=== PATIENT | female | born 1935 | race Caucasian/White ===

== ENCOUNTER 2018-12-14 18:14 | Inpatient (IN) | payer MEDICARE ==
[~2018-12-14] VITALS: Ht 167.6 cm; Wt 57.2 kg
[~2018-12-14 18:14] MED LIST: ACET325T9 PO; ACET500T55 PO; ALBU2.5V5 NEB; ALEN70TA3 PO; ASPI-630 PO; BISA-42 PO; BISA10SU2 RC; CALC-98 PO; CARB1TAB2 PO; CHOL2000 PO; DONE10TA61 PO; LACT1CAP6 PO; LEVO25TA4 PO; LEVO25TA55 PO; MAGN400O7 PO; MEMA10TA PO; MULT-638 PO; NA P133E2 RC; NYST15CR TP; PRAM0.255 PO; SERT50TA PO; SIMV40TA3 PO; TRAM50TA PO
[2018-12-14 19:15] LABS: BILIRUBIN,URINE SMALL (NEG); CLARITY,URINE TURBID; COLOR,URINE AMBER; NITRITE,URINE POSITIVE (NEG); PH,URINE 7.5; PROTEIN,URINE 100 mg/dL (NEG-TRACE)
[2018-12-14] MEDS ORDERED: ACETAMINOPHEN 325 MG TABLET. PO ONE (19:15)
[2018-12-14] MEDS ORDERED: IV NORMAL SALINE 1000ML BAG 1,000 ML IV ONE (19:15)
[2018-12-14] MEDS ORDERED: cefTRIAXone IV Push 1 GM VIAL. IVP ONE (19:15)
[2018-12-14 19:28] LABS: BASO % 0 % (0-3); EOS # 0.1 x10^3/uL (0.0-0.7); EOS % 2 % (0-3); HEMATOCRIT 39.4 % (36.0-47.0); HEMOGLOBIN 12.7 g/dL (12.0-15.5); LYMPH # 1.9 x10^3/uL (1.0-4.8); LYMPH % 24 % (24-48); MEAN CORPUSCULAR HEMOGLOBIN 28 pg (25-35); MEAN CORPUSCULAR HGB CONC 32 g/dL (31-37); MEAN CORPUSCULAR VOLUME 88 fL (79-100); MONO # 0.7 x10^3/uL (0.0-1.1); MONO % 8 % (0-9); NEUT # 5.3 x10^3uL (1.8-7.7); NEUT % 66 % (31-73); PLATELET COUNT 215 x10^3/uL (140-400); RED BLOOD COUNT 4.49 x10^6/uL (3.50-5.40); RED CELL DISTRIBUTION WIDTH 14.8 % (11.5-14.5)
[2018-12-14] MEDS ORDERED: ACETAMINOPHEN 650 MG SUPP.RECT. PR ONE (19:30)
[2018-12-14 19:31] LABS: BACTERIA,URINE MANY /HPF (0-FEW); RBC,URINE >40 /HPF (0-2); WBC,URINE 20-40 /HPF (0-4)
[2018-12-14 19:33] LABS: CALCIUM 8.6 mg/dL (8.5-10.1); GFR 53.2; POTASSIUM 3.7 mmol/L (3.5-5.1); SALIC < 2.8 mg/dL (2.8-20.0)
[2018-12-14 19:35] LABS: PROTHROMBIN TIME PATIENT 14.9 SEC (11.7-14.0)
[2018-12-14 19:42] LABS: ALBUMIN/GLOBULIN RATIO 0.9 (1.0-1.7); TOTAL BILIRUBIN 0.5 mg/dL (0.2-1.0); TOTAL PROTEIN 6.5 g/dL (6.4-8.2)
--- NOTE | 2018-12-14 19:59 | PHYS DOC ---
Past Medical History Past Medical History: Dementia, Hypothyroid, UTI, Other Additional Past Medical Histor: arthritis, alzheimer's, PARKINSONS Past Surgical History: No Surgical History Alcohol Use: None Drug Use: None Adult General Chief Complaint Chief Complaint: ALTERED MENTAL STATUS HPI HPI Patient is a 83 year old female who presents with AMS and fever. She was transported from [facility] and upon arrival she was somnolent. [place] [facility] a 1400 today and it showed hypernatremia and UA showed >50 wbc and rbc / hpf, as well as multiple bacteria and positive nitrates. She was able to follow commands and opened her eyes to speech. She denied pain, shortness of breath, and n/v. She has a history of parkinsons, dementia, hypothyroidism, and afib. Review of Systems Review of Systems Limited by dementia Current Medications Current Medications Current Medications Medications (Trade) Dose Ordered Sig/Belinda Start Time Stop Time Status Last Admin Dose Admin Acetaminophen (Tylenol Supp) 650 mg 1X ONCE 12/14/18 19:30 12/14/18 19:31 DC 12/14/18 19:22 650 MG Acetaminophen (Tylenol) 650 mg 1X ONCE 12/14/18 19:15 12/14/18 19:16 DC Ceftriaxone Sodium (Rocephin) 1 gm 1X ONCE 12/14/18 19:15 12/14/18 19:16 DC 12/14/18 19:22 1 GM Sodium Chloride 1,000 ml @ 1,000 mls/hr 1X ONCE 12/14/18 19:15 12/14/18 20:14 DC 12/14/18 19:22 1,000 MLS/HR Allergies Allergies Allergies Coded Allergies Type Severity Reaction Last Updated Verified No Known Drug Allergies 08/01/17 No Physical Exam Physical Exam Constitutional: Well developed, chronically ill-appearing eyes are closed open to voice HENT: Normocephalic, atraumatic, bilateral external ears normal, oropharynx very dry, no oral exudates, nose normal. [] Eyes: PERRLA, EOMI, conjunctiva normal, no discharge. [] Neck: Normal range of motion, no tenderness, supple, no stridor. [] Cardiovascular:Heart rate regular rhythm, no murmur [] Lungs & Thorax: Bilateral breath sounds clear to auscultation [] Abdomen: Bowel sounds normal, soft, no tenderness, no masses, no pulsatile masses. [] Extremities: No tenderness, no cyanosis, no clubbing, ROM intact, no edema. [] Neurologic: Alert and oriented 1 patient is able follow some commands Current Patient Data Vital Signs Vital Signs Date Time Temp Pulse Resp B/P (MAP) Pulse Ox O2 Delivery O2 Flow Rate FiO2 12/14/18 22:30 60 18 95 12/14/18 18:17 101.0 101/50 (67) Room Air 101.0 Lab Values Laboratory Tests Test 12/14/18 18:33 12/14/18 19:15 12/14/18 22:15 Urine Collection Type Unknown Urine Color [place] Urine Clarity Turbid Urine pH 7.5 Urine Specific Avis 1.025 Urine Protein 100 mg/dL (NEG-TRACE) Urine Glucose (UA) Negative mg/dL (NEG) Urine Ketones (Stick) Trace mg/dL (NEG) Urine Blood Large (NEG) Urine Nitrite Positive (NEG) Urine Bilirubin Small (NEG) Urine Urobilinogen Dipstick 1.0 mg/dL (0.2 mg/dL) Urine Leukocyte Esterase Large (NEG) Urine RBC >40 /HPF (0-2) Urine WBC 20-40 /HPF (0-4) Urine Bacteria Many /HPF (0-FEW) White Blood Count 8.0 x10^3/uL (4.0-11.0) Red Blood Count 4.49 x10^6/uL (3.50-5.40) Hemoglobin 12.7 g/dL (12.0-15.5) Hematocrit 39.4 % (36.0-47.0) Mean Corpuscular Volume 88 fL (79-100) Mean Corpuscular Hemoglobin 28 pg (25-35) Mean Corpuscular Hemoglobin Concent 32 g/dL (31-37) Red Cell Distribution Width 14.8 % (11.5-14.5) H Platelet Count 215 x10^3/uL (140-400) Neutrophils (%) (Auto) 66 % (31-73) Lymphocytes (%) (Auto) 24 % (24-48) Monocytes (%) (Auto) 8 % (0-9) Eosinophils (%) (Auto) 2 % (0-3) Basophils (%) (Auto) 0 % (0-3) Neutrophils # (Auto) 5.3 x10^3uL (1.8-7.7) Lymphocytes # (Auto) 1.9 x10^3/uL (1.0-4.8) Monocytes # (Auto) 0.7 x10^3/uL (0.0-1.1) Eosinophils # (Auto) 0.1 x10^3/uL (0.0-0.7) Basophils # (Auto) 0.0 x10^3/uL (0.0-0.2) Prothrombin Time 14.9 SEC (11.7-14.0) H Prothrombin Time INR 1.2 (0.8-1.1) H Sodium Level 151 mmol/L (136-145) H Potassium Level 3.7 mmol/L (3.5-5.1) Chloride Level 114 mmol/L (98-107) H Carbon Dioxide Level 27 mmol/L (21-32) Anion Gap 10 (6-14) Blood Urea Nitrogen 33 mg/dL (7-20) H Creatinine 1.0 mg/dL (0.6-1.0) Estimated GFR (Cockcroft-Gault) 53.2 BUN/Creatinine Ratio 33 (6-20) H Glucose Level 98 mg/dL (70-99) Lactic Acid Level 1.3 mmol/L (0.4-2.0) Calcium Level 8.6 mg/dL (8.5-10.1) Total Bilirubin 0.5 mg/dL (0.2-1.0) Aspartate Amino Transferase (AST) 34 U/L (15-37) Alanine Aminotransferase (ALT) 23 U/L (14-59) Alkaline Phosphatase 92 U/L (46-116) Troponin I Quantitative < 0.017 ng/mL (0.000-0.055) Total Protein 6.5 g/dL (6.4-8.2) Albumin 3.0 g/dL (3.4-5.0) L Albumin/Globulin Ratio 0.9 (1.0-1.7) L Salicylates Level < 2.8 mg/dL (2.8-20.0) L Salicylate Last Dose Date Unk Salicylate Last Dose Time Unk Influenza Type A Antigen Negative (NEGATIVE) Influenza Type B Antigen Negative (NEGATIVE) Laboratory Tests 12/14/18 19:15 Laboratory Tests 12/14/18 19:15 EKG EKG []Normal sinus rhythm rate of 78 no acute ischemic changes noted interpreted by me the timing encounter. Radiology/Procedures Radiology/Procedures CXR (12/14/2018, 1900) shows[] no def pna. Course & Med Decision Making Course & Med Decision Making Patient is a 83 year old female who presents with AMS and fever. She was transported from [facility] and upon arrival she was somnolent but AAOx3. [place] [facility] a 1400 today and it showed hypernatremia and UA showed >50 wbc and rbc / hpf, as well as multiple bacteria and positive nitrates. She was able to follow commands and opened her eyes to speech. She denied pain, shortness of breath, and n/v. She has a history of parkinsons, dementia, hypothyroidism, and afib. With the results from [place] coupled w/ patients age, fever, and AMS, she most likely has the followin. UTI 2. Sepsis 3. Hypernatremia 4. Dehydration IV access was established and fluid bolus administered given to patient for dehydration. A UA, CBC, CMP, UDS, ECG, LFTs, CXR, 2 blood cultures, urine culture, and Lactic acid levels were ordered to help r/o or rule in the above. Pt was given Ceftriaxone for her fever and ams and urinalysis findings, this could possibly change when blood cultures and urine cultures come back. Noted UTI lactic acid is within normal limits blood pressure looks good patient be admitted to the service of Dr. menjivar antibiotics hydration and observation patient's family are comfortable with this plan and they say overall that she is actually not that far off her baseline just more somnolent than normal Dragon Disclaimer Dragon Disclaimer This electronic medical record was generated, in whole or in part, using a voice recognition dictation system. Departure Departure Impression: Primary Impression: UTI (urinary tract infection) Additional Impression: Hypernatremia Disposition: ADMITTED INPATIENT Admitting Physician: Other Condition: STABLE Referrals: ALEXA MCELROY MD (PCP) Problem Qualifiers TRINH LEWIS MD Dec 14, 2018 19:59
--- NOTE | 2018-12-14 22:26 | RAD ---
AP chest. HISTORY: Altered mental status, fever AP view was taken of the chest. The aorta is tortuous. Heart is normal in size. There are no acute infiltrates. There is no effusion. IMPRESSION: 1. No acute infiltrates. Electronically signed by: Anmol Persaud MD (12/14/2018 10:23 PM) [id number]
[2018-12-14 22:41] LABS: INFLUENZA A PATIENT NEGATIVE (NEGATIVE); INFLUENZA B PATIENT NEGATIVE (NEGATIVE)
[2018-12-15] VITALS (7 sets, daily range): BP systolic 110–159; BP diastolic 45–77
--- NOTE | 2018-12-15 00:29 | NUR ---
Pt. just arrived from ED via bed with UTI and AMS. She is asleep and has not made any needs known. Tiny sacral wound that is starting and ST on RUE both covered w/ foam dsg.
--- NOTE | 2018-12-15 00:36 | PDOC1 ---
History and Physical Date of Admission Date of Admission 12/14/2018 Source Source: Chart review, Unable to obtain due to (dementia) History of Present Illness History of Present Illness Patient is an 83-year-old female with past medical history of dementia and Parkinson's disease who [facility] due to reports of "altered mental status" the history is taken from report from emergency department physician was able to get history from family members were unfortunately not at bedside anymore. The patient at the time of my evaluation is in no apparent distress. Patient retracts to noxious stimuli in seems to be moving all extremities. Patient recently responds to verbal stimuli when I call her name. She will not open her eyes and will not engage in conversation. The patient baseline seems to be put we are witnessing at the present time. The patient did not percent fever chills or diaphoresis no reason cold-like symptoms and no recent [id number] medications or changes to her home medication regimen either. Patient was evaluated in the emergency department and diagnosed with a UTI which could be contributing to her altered mental status. I have explained the plan of care to patient unfortunately had taking she is able to understand he is in no apparent distress at the time of my note breathing normally with coarse breath sounds especially in the bilateral lower lungs no peripheral edema reported ER course: Patient is a 83 year old female who presents with AMS and fever. She was transported from [facility] and upon arrival she was somnolent but AAOx3. [place] [facility] a 1400 today and it showed hypernatremia and UA showed >50 wbc and rbc / hpf, as well as multiple bacteria and positive nitrates. She was able to follow commands and opened her eyes to speech. She denied pain, shortness of breath, and n/v. She has a history of parkinsons, dementia, hypothyroidism, and afib. Past Medical History Cardiovascular: Hyperlipidemia Pulmonary: No pertinent hx CENTRAL NERVOUS SYSTEM: Dementia, Other GI: No pertinent hx Heme/Onc: No pertinent hx Hepatobiliary: No pertinent hx Psych: No pertinent hx Rheumatologic: No pertinent hx Infectious disease: No pertinent hx Renal/: No pertinent hx Endocrine: No pertinent hx, Hypothyroidism Past Surgical History Past Surgical History: No pertinent history Family History Family History: Other Social History ALCOHOL: none Drugs: None Current Medications Current Medications Current Medications Medications (Trade) Dose Ordered Sig/Belinda Start Time Stop Time Status Last Admin Dose Admin Acetaminophen (Tylenol Supp) 650 mg 1X ONCE 12/14/18 19:30 12/14/18 19:31 DC 12/14/18 19:22 650 MG Acetaminophen (Tylenol) 650 mg 1X ONCE 12/14/18 19:15 12/14/18 19:16 DC Ceftriaxone Sodium (Rocephin) 1 gm 1X ONCE 12/14/18 19:15 12/14/18 19:16 DC 12/14/18 19:22 1 GM Sodium Chloride 1,000 ml @ 75 mls/hr [id number] 12/14/18 23:00 12/15/18 22:59 Allergies Allergies Allergies Coded Allergies Type Severity Reaction Last Updated Verified No Known Drug Allergies 08/01/17 No ROS Review of System CONSTITUTIONAL: No fever or chills EYES: No recent changes SKIN: No rash or itching CARDIOVASCULAR: No chest pain, syncope, palpitations, or edema RESPIRATORY: No SOB or cough GASTROINTESTINAL: No nausea, vomiting or abdominal pain NEUROLOGICAL: No headaches or weakness ENDOCRINE: No cold or heat intolerance GENITOURINARY: No urgency or frequency of urination MUSCULOSKELETAL: No back pain or joint pain LYMPHATICS: No enlarged lymph nodes PSYCHIATRIC: No anxiety or depression Physical Exam Physical Exam GEN.: distress. Alert and oriented. HEENT: Head is normocephalic, atraumatic NECK: Supple. LUNGS: Clear to auscultation. HEART: RRR, S1, S2 present. Peripheral pulses intact ABDOMEN: Soft, nontender. Positive bowel sounds. EXTREMITIES: Without any cyanosis. NEUROLOGIC: somewhat slurred speech, cranial nerves grossly intact, unable to assess fund of knowledge, repetion, etc, etc PSYCHIATRIC: Normal affect, normal mood. SKIN: No ulcerations Vitals Vitals Vital Signs Date Time Temp Pulse Resp B/P (MAP) Pulse Ox O2 Delivery O2 Flow Rate FiO2 12/14/18 23:30 60 19 94 12/14/18 18:17 101.0 101/50 (67) Room Air 101.0 Labs Labs Laboratory Tests Test 12/14/18 18:33 12/14/18 19:15 12/14/18 22:15 Urine Collection Type Unknown Urine Color [place] Urine Clarity Turbid Urine pH 7.5 Urine Specific [place] 1.025 Urine Protein 100 mg/dL (NEG-TRACE) Urine Glucose (UA) Negative mg/dL (NEG) Urine Ketones (Stick) Trace mg/dL (NEG) Urine Blood Large (NEG) Urine Nitrite Positive (NEG) Urine Bilirubin Small (NEG) Urine Urobilinogen Dipstick 1.0 mg/dL (0.2 mg/dL) Urine Leukocyte Esterase Large (NEG) Urine RBC >40 /HPF (0-2) Urine WBC 20-40 /HPF (0-4) Urine Bacteria Many /HPF (0-FEW) White Blood Count 8.0 x10^3/uL (4.0-11.0) Red Blood Count 4.49 x10^6/uL (3.50-5.40) Hemoglobin 12.7 g/dL (12.0-15.5) Hematocrit 39.4 % (36.0-47.0) Mean Corpuscular Volume 88 fL (79-100) Mean Corpuscular Hemoglobin 28 pg (25-35) Mean Corpuscular Hemoglobin Concent 32 g/dL (31-37) Red Cell Distribution Width 14.8 % (11.5-14.5) Platelet Count 215 x10^3/uL (140-400) Neutrophils (%) (Auto) 66 % (31-73) Lymphocytes (%) (Auto) 24 % (24-48) Monocytes (%) (Auto) 8 % (0-9) Eosinophils (%) (Auto) 2 % (0-3) Basophils (%) (Auto) 0 % (0-3) Neutrophils # (Auto) 5.3 x10^3uL (1.8-7.7) Lymphocytes # (Auto) 1.9 x10^3/uL (1.0-4.8) Monocytes # (Auto) 0.7 x10^3/uL (0.0-1.1) Eosinophils # (Auto) 0.1 x10^3/uL (0.0-0.7) Basophils # (Auto) 0.0 x10^3/uL (0.0-0.2) Prothrombin Time 14.9 SEC (11.7-14.0) Prothromb Time International Ratio 1.2 (0.8-1.1) Sodium Level 151 mmol/L (136-145) Potassium Level 3.7 mmol/L (3.5-5.1) Chloride Level 114 mmol/L (98-107) Carbon Dioxide Level 27 mmol/L (21-32) Anion Gap 10 (6-14) Blood Urea Nitrogen 33 mg/dL (7-20) Creatinine 1.0 mg/dL (0.6-1.0) Estimated GFR (Cockcroft-Gault) 53.2 BUN/Creatinine Ratio 33 (6-20) Glucose Level 98 mg/dL (70-99) Lactic Acid Level 1.3 mmol/L (0.4-2.0) Calcium Level 8.6 mg/dL (8.5-10.1) Total Bilirubin 0.5 mg/dL (0.2-1.0) Aspartate Amino Transf (AST/SGOT) 34 U/L (15-37) Alanine Aminotransferase (ALT/SGPT) 23 U/L (14-59) Alkaline Phosphatase 92 U/L (46-116) Troponin I Quantitative < 0.017 ng/mL (0.000-0.055) Total Protein 6.5 g/dL (6.4-8.2) Albumin 3.0 g/dL (3.4-5.0) Albumin/Globulin Ratio 0.9 (1.0-1.7) Salicylates Level < 2.8 mg/dL (2.8-20.0) Salicylate Last Dose Date Unk Salicylate Last Dose Time Unk Influenza Type A Antigen Negative (NEGATIVE) Influenza Type B Antigen Negative (NEGATIVE) Laboratory Tests Test 12/14/18 18:33 12/14/18 19:15 12/14/18 22:15 Urine Collection Type Unknown Urine Color [place] Urine Clarity Turbid Urine pH 7.5 Urine Specific [place] 1.025 Urine Protein 100 mg/dL (NEG-TRACE) Urine Glucose (UA) Negative mg/dL (NEG) Urine Ketones (Stick) Trace mg/dL (NEG) Urine Blood Large (NEG) Urine Nitrite Positive (NEG) Urine Bilirubin Small (NEG) Urine Urobilinogen Dipstick 1.0 mg/dL (0.2 mg/dL) Urine Leukocyte Esterase Large (NEG) Urine RBC >40 /HPF (0-2) Urine WBC 20-40 /HPF (0-4) Urine Bacteria Many /HPF (0-FEW) White Blood Count 8.0 x10^3/uL (4.0-11.0) Red Blood Count 4.49 x10^6/uL (3.50-5.40) Hemoglobin 12.7 g/dL (12.0-15.5) Hematocrit 39.4 % (36.0-47.0) Mean Corpuscular Volume 88 fL (79-100) Mean Corpuscular Hemoglobin 28 pg (25-35) Mean Corpuscular Hemoglobin Concent 32 g/dL (31-37) Red Cell Distribution Width 14.8 % (11.5-14.5) Platelet Count 215 x10^3/uL (140-400) Neutrophils (%) (Auto) 66 % (31-73) Lymphocytes (%) (Auto) 24 % (24-48) Monocytes (%) (Auto) 8 % (0-9) Eosinophils (%) (Auto) 2 % (0-3) Basophils (%) (Auto) 0 % (0-3) Neutrophils # (Auto) 5.3 x10^3uL (1.8-7.7) Lymphocytes # (Auto) 1.9 x10^3/uL (1.0-4.8) Monocytes # (Auto) 0.7 x10^3/uL (0.0-1.1) Eosinophils # (Auto) 0.1 x10^3/uL (0.0-0.7) Basophils # (Auto) 0.0 x10^3/uL (0.0-0.2) Prothrombin Time 14.9 SEC (11.7-14.0) Prothromb Time International Ratio 1.2 (0.8-1.1) Sodium Level 151 mmol/L (136-145) Potassium Level 3.7 mmol/L (3.5-5.1) Chloride Level 114 mmol/L (98-107) Carbon Dioxide Level 27 mmol/L (21-32) Anion Gap 10 (6-14) Blood Urea Nitrogen 33 mg/dL (7-20) Creatinine 1.0 mg/dL (0.6-1.0) Estimated GFR (Cockcroft-Gault) 53.2 BUN/Creatinine Ratio 33 (6-20) Glucose Level 98 mg/dL (70-99) Lactic Acid Level 1.3 mmol/L (0.4-2.0) Calcium Level 8.6 mg/dL (8.5-10.1) Total Bilirubin 0.5 mg/dL (0.2-1.0) Aspartate Amino Transf (AST/SGOT) 34 U/L (15-37) Alanine Aminotransferase (ALT/SGPT) 23 U/L (14-59) Alkaline Phosphatase 92 U/L (46-116) Troponin I Quantitative < 0.017 ng/mL (0.000-0.055) Total Protein 6.5 g/dL (6.4-8.2) Albumin 3.0 g/dL (3.4-5.0) Albumin/Globulin Ratio 0.9 (1.0-1.7) Salicylates Level < 2.8 mg/dL (2.8-20.0) Salicylate Last Dose Date Unk Salicylate Last Dose Time Unk Influenza Type A Antigen Negative (NEGATIVE) Influenza Type B Antigen Negative (NEGATIVE) VTE Prophylaxis Ordered VTE Prophylaxis Devices: Yes VTE Pharmacological Prophylaxi: No RUBEN LANCE MD Dec 15, 2018 00:36
[2018-12-15] MEDS: IV NORMAL SALINE 1000ML BAG 1,000 ML IV SCH ×2 (00:42→12:34)
--- NOTE | 2018-12-15 08:31 | EKG ---
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
[2018-12-15] MEDS ORDERED: ACETAMINOPHEN 500 MG TABLET PO PRN (10:30)
[2018-12-15] MEDS ORDERED: BISACODYL 10 MG SUPP.RECT. PR PRN (10:30)
[2018-12-15] MEDS ORDERED: SODIUM PHOSPHATES 19/7GM 133 ML ENEMA. RC PRN (10:30)
[2018-12-15] MEDS ORDERED: ACETAMINOPHEN 325 MG TABLET. PO PRN (10:30)
[2018-12-15] MEDS ORDERED: traMADol 50 MG TABLET PO PRN (10:30)
[2018-12-15] MEDS: ALBUTEROL SULFATE 2.5 MG/3 ML NEBU. NEB SCH ×2 (12:00→20:44)
[2018-12-15] MEDS: MULTIVITAMIN with MINERAL TABLET. PO SCH (12:31)
[2018-12-15] MEDS: MAGNESIUM HYDROXIDE 2,400 MG/30 ML ORAL.SUSP. PO SCH (12:31)
[2018-12-15] MEDS: LEVOTHYROXINE 25 MCG TABLET. PO SCH (12:32)
[2018-12-15] MEDS: CARBIDOPA/LEVODOPA 25/100MG TABLET PO SCH ×3 (12:32→21:02)
[2018-12-15] MEDS: BISACODYL 5 MG TABLET.DR. PO SCH (12:32)
[2018-12-15] MEDS: ASPIRIN CHEWABLE 81 MG TABLET. PO SCH (12:32)
[2018-12-15] MEDS: SERTRALINE 50 MG TABLET. PO SCH (12:32)
[2018-12-15] MEDS: MEMANTINE 10 MG TABLET. PO SCH ×2 (12:33→21:02)
[2018-12-15] MEDS: CHOLECALCIFEROL (VITAMIN D3) 1,000 UNIT TABLET PO SCH (12:33)
[2018-12-15] MEDS: NYSTATIN 100,000 UNIT/GM TOPICAL CREAM 15GM TUBE. TP SCH ×2 (12:34→21:03)
--- NOTE | 2018-12-15 13:08 | PDOC ---
PROGRESS NOTES Chief Complaint Chief Complaint Acute encephalopathy secondary to urinary tract infection Moderate to severe dehydration Hypernatremia secondary to the above Generalized weakness History of Parkinson's disease History of Alzheimer's type dementia History of hypothyroidism Plan: Repeat labs in the a.m. Resume home medications Continue with antibiotics awaiting for results of cultures Prophylaxis with SCD and teds History of Present Illness History of Present Illness Patient laying in bed in no acute distress. Seems to be a little bit more awake compared to admission yesterday evening. I'm able to have a meaningful conversation with the patient but she seems to be back at her usual baseline. According to ER physician report patient will intermittently interact with her family members but he is not carrying out for long conversations at this point. Hemodynamically stable continue waiting for results of cultures Vitals Vitals Vital Signs Date Time Temp Pulse Resp B/P (MAP) Pulse Ox O2 Delivery O2 Flow Rate FiO2 12/15/18 10:47 97.6 85 12 115/70 (85) 93 Room Air 97.6 Physical Exam General: Alert, No acute distress Heart: Regular rate, Normal S1, Normal S2 Lungs: Clear Abdomen: Normal bowel sounds, Soft, No tenderness Extremities: No clubbing, No cyanosis Skin: No rashes, No breakdown Labs LABS Laboratory Tests Test 12/14/18 18:33 12/14/18 19:15 12/14/18 22:15 Urine Collection Type Unknown Urine Color [place] Urine Clarity Turbid Urine pH 7.5 Urine Specific [place] 1.025 Urine Protein 100 mg/dL (NEG-TRACE) Urine Glucose (UA) Negative mg/dL (NEG) Urine Ketones (Stick) Trace mg/dL (NEG) Urine Blood Large (NEG) Urine Nitrite Positive (NEG) Urine Bilirubin Small (NEG) Urine Urobilinogen Dipstick 1.0 mg/dL (0.2 mg/dL) Urine Leukocyte Esterase Large (NEG) Urine RBC >40 /HPF (0-2) Urine WBC 20-40 /HPF (0-4) Urine Bacteria Many /HPF (0-FEW) White Blood Count 8.0 x10^3/uL (4.0-11.0) Red Blood Count 4.49 x10^6/uL (3.50-5.40) Hemoglobin 12.7 g/dL (12.0-15.5) Hematocrit 39.4 % (36.0-47.0) Mean Corpuscular Volume 88 fL (79-100) Mean Corpuscular Hemoglobin 28 pg (25-35) Mean Corpuscular Hemoglobin Concent 32 g/dL (31-37) Red Cell Distribution Width 14.8 % (11.5-14.5) Platelet Count 215 x10^3/uL (140-400) Neutrophils (%) (Auto) 66 % (31-73) Lymphocytes (%) (Auto) 24 % (24-48) Monocytes (%) (Auto) 8 % (0-9) Eosinophils (%) (Auto) 2 % (0-3) Basophils (%) (Auto) 0 % (0-3) Neutrophils # (Auto) 5.3 x10^3uL (1.8-7.7) Lymphocytes # (Auto) 1.9 x10^3/uL (1.0-4.8) Monocytes # (Auto) 0.7 x10^3/uL (0.0-1.1) Eosinophils # (Auto) 0.1 x10^3/uL (0.0-0.7) Basophils # (Auto) 0.0 x10^3/uL (0.0-0.2) Prothrombin Time 14.9 SEC (11.7-14.0) Prothromb Time International Ratio 1.2 (0.8-1.1) Sodium Level 151 mmol/L (136-145) Potassium Level 3.7 mmol/L (3.5-5.1) Chloride Level 114 mmol/L (98-107) Carbon Dioxide Level 27 mmol/L (21-32) Anion Gap 10 (6-14) Blood Urea Nitrogen 33 mg/dL (7-20) Creatinine 1.0 mg/dL (0.6-1.0) Estimated GFR (Cockcroft-Gault) 53.2 BUN/Creatinine Ratio 33 (6-20) Glucose Level 98 mg/dL (70-99) Lactic Acid Level 1.3 mmol/L (0.4-2.0) Calcium Level 8.6 mg/dL (8.5-10.1) Total Bilirubin 0.5 mg/dL (0.2-1.0) Aspartate Amino Transf (AST/SGOT) 34 U/L (15-37) Alanine Aminotransferase (ALT/SGPT) 23 U/L (14-59) Alkaline Phosphatase 92 U/L (46-116) Troponin I Quantitative < 0.017 ng/mL (0.000-0.055) Total Protein 6.5 g/dL (6.4-8.2) Albumin 3.0 g/dL (3.4-5.0) Albumin/Globulin Ratio 0.9 (1.0-1.7) Salicylates Level < 2.8 mg/dL (2.8-20.0) Salicylate Last Dose Date Unk Salicylate Last Dose Time Unk Influenza Type A Antigen Negative (NEGATIVE) Influenza Type B Antigen Negative (NEGATIVE) Assessment and Plan Assessmemt and Plan Problems Medical Problems: (1) Hypernatremia Status: Acute Problems: (1) Hypernatremia (2) UTI (urinary tract infection) (3) Altered mental status (4) Generalized weakness Comment Review of Relevant I have reviewed the following items josephine (where applicable) has been applied. Labs Laboratory Tests Test 12/14/18 18:33 12/14/18 19:15 12/14/18 22:15 Urine Collection Type Unknown Urine Color [place] Urine Clarity Turbid Urine pH 7.5 Urine Specific [place] 1.025 Urine Protein 100 mg/dL (NEG-TRACE) Urine Glucose (UA) Negative mg/dL (NEG) Urine Ketones (Stick) Trace mg/dL (NEG) Urine Blood Large (NEG) Urine Nitrite Positive (NEG) Urine Bilirubin Small (NEG) Urine Urobilinogen Dipstick 1.0 mg/dL (0.2 mg/dL) Urine Leukocyte Esterase Large (NEG) Urine RBC >40 /HPF (0-2) Urine WBC 20-40 /HPF (0-4) Urine Bacteria Many /HPF (0-FEW) White Blood Count 8.0 x10^3/uL (4.0-11.0) Red Blood Count 4.49 x10^6/uL (3.50-5.40) Hemoglobin 12.7 g/dL (12.0-15.5) Hematocrit 39.4 % (36.0-47.0) Mean Corpuscular Volume 88 fL (79-100) Mean Corpuscular Hemoglobin 28 pg (25-35) Mean Corpuscular Hemoglobin Concent 32 g/dL (31-37) Red Cell Distribution Width 14.8 % (11.5-14.5) Platelet Count 215 x10^3/uL (140-400) Neutrophils (%) (Auto) 66 % (31-73) Lymphocytes (%) (Auto) 24 % (24-48) Monocytes (%) (Auto) 8 % (0-9) Eosinophils (%) (Auto) 2 % (0-3) Basophils (%) (Auto) 0 % (0-3) Neutrophils # (Auto) 5.3 x10^3uL (1.8-7.7) Lymphocytes # (Auto) 1.9 x10^3/uL (1.0-4.8) Monocytes # (Auto) 0.7 x10^3/uL (0.0-1.1) Eosinophils # (Auto) 0.1 x10^3/uL (0.0-0.7) Basophils # (Auto) 0.0 x10^3/uL (0.0-0.2) Prothrombin Time 14.9 SEC (11.7-14.0) Prothromb Time International Ratio 1.2 (0.8-1.1) Sodium Level 151 mmol/L (136-145) Potassium Level 3.7 mmol/L (3.5-5.1) Chloride Level 114 mmol/L (98-107) Carbon Dioxide Level 27 mmol/L (21-32) Anion Gap 10 (6-14) Blood Urea Nitrogen 33 mg/dL (7-20) Creatinine 1.0 mg/dL (0.6-1.0) Estimated GFR (Cockcroft-Gault) 53.2 BUN/Creatinine Ratio 33 (6-20) Glucose Level 98 mg/dL (70-99) Lactic Acid Level 1.3 mmol/L (0.4-2.0) Calcium Level 8.6 mg/dL (8.5-10.1) Total Bilirubin 0.5 mg/dL (0.2-1.0) Aspartate Amino Transf (AST/SGOT) 34 U/L (15-37) Alanine Aminotransferase (ALT/SGPT) 23 U/L (14-59) Alkaline Phosphatase 92 U/L (46-116) Troponin I Quantitative < 0.017 ng/mL (0.000-0.055) Total Protein 6.5 g/dL (6.4-8.2) Albumin 3.0 g/dL (3.4-5.0) Albumin/Globulin Ratio 0.9 (1.0-1.7) Salicylates Level < 2.8 mg/dL (2.8-20.0) Salicylate Last Dose Date Unk Salicylate Last Dose Time Unk Influenza Type A Antigen Negative (NEGATIVE) Influenza Type B Antigen Negative (NEGATIVE) Laboratory Tests Test 12/14/18 18:33 12/14/18 19:15 12/14/18 22:15 Urine Collection Type Unknown Urine Color [place] Urine Clarity Turbid Urine pH 7.5 Urine Specific [place] 1.025 Urine Protein 100 mg/dL (NEG-TRACE) Urine Glucose (UA) Negative mg/dL (NEG) Urine Ketones (Stick) Trace mg/dL (NEG) Urine Blood Large (NEG) Urine Nitrite Positive (NEG) Urine Bilirubin Small (NEG) Urine Urobilinogen Dipstick 1.0 mg/dL (0.2 mg/dL) Urine Leukocyte Esterase Large (NEG) Urine RBC >40 /HPF (0-2) Urine WBC 20-40 /HPF (0-4) Urine Bacteria Many /HPF (0-FEW) White Blood Count 8.0 x10^3/uL (4.0-11.0) Red Blood Count 4.49 x10^6/uL (3.50-5.40) Hemoglobin 12.7 g/dL (12.0-15.5) Hematocrit 39.4 % (36.0-47.0) Mean Corpuscular Volume 88 fL (79-100) Mean Corpuscular Hemoglobin 28 pg (25-35) Mean Corpuscular Hemoglobin Concent 32 g/dL (31-37) Red Cell Distribution Width 14.8 % (11.5-14.5) Platelet Count 215 x10^3/uL (140-400) Neutrophils (%) (Auto) 66 % (31-73) Lymphocytes (%) (Auto) 24 % (24-48) Monocytes (%) (Auto) 8 % (0-9) Eosinophils (%) (Auto) 2 % (0-3) Basophils (%) (Auto) 0 % (0-3) Neutrophils # (Auto) 5.3 x10^3uL (1.8-7.7) Lymphocytes # (Auto) 1.9 x10^3/uL (1.0-4.8) Monocytes # (Auto) 0.7 x10^3/uL (0.0-1.1) Eosinophils # (Auto) 0.1 x10^3/uL (0.0-0.7) Basophils # (Auto) 0.0 x10^3/uL (0.0-0.2) Prothrombin Time 14.9 SEC (11.7-14.0) Prothromb Time International Ratio 1.2 (0.8-1.1) Sodium Level 151 mmol/L (136-145) Potassium Level 3.7 mmol/L (3.5-5.1) Chloride Level 114 mmol/L (98-107) Carbon Dioxide Level 27 mmol/L (21-32) Anion Gap 10 (6-14) Blood Urea Nitrogen 33 mg/dL (7-20) Creatinine 1.0 mg/dL (0.6-1.0) Estimated GFR (Cockcroft-Gault) 53.2 BUN/Creatinine Ratio 33 (6-20) Glucose Level 98 mg/dL (70-99) Lactic Acid Level 1.3 mmol/L (0.4-2.0) Calcium Level 8.6 mg/dL (8.5-10.1) Total Bilirubin 0.5 mg/dL (0.2-1.0) Aspartate Amino Transf (AST/SGOT) 34 U/L (15-37) Alanine Aminotransferase (ALT/SGPT) 23 U/L (14-59) Alkaline Phosphatase 92 U/L (46-116) Troponin I Quantitative < 0.017 ng/mL (0.000-0.055) Total Protein 6.5 g/dL (6.4-8.2) Albumin 3.0 g/dL (3.4-5.0) Albumin/Globulin Ratio 0.9 (1.0-1.7) Salicylates Level < 2.8 mg/dL (2.8-20.0) Salicylate Last Dose Date Unk Salicylate Last Dose Time Unk Influenza Type A Antigen Negative (NEGATIVE) Influenza Type B Antigen Negative (NEGATIVE) Medications Current Medications Sodium Chloride 1,000 ml @ 1,000 mls/hr 1X ONCE IV Last administered on at 19:22; Start 12/14/18 at 19:15; Stop 12/14/18 at 20:14; Status DC Ceftriaxone Sodium (Rocephin) 1 gm 1X ONCE IVP Last administered on 12/14/18 19:22; Start 12/14/18 at 19:15; Stop 12/14/18 at 19:16; Status DC Acetaminophen (Tylenol) 650 mg 1X ONCE PO ; Start 12/14/18 at 19:15; Stop at 19:16; Status DC Acetaminophen (Tylenol Supp) 650 mg 1X ONCE [place] Last administered on 12/14/18 19:22; Start 12/14/18 at 19:30; Stop 12/14/18 at 19:31; Status DC Sodium Chloride 1,000 ml @ 75 mls/hr [id number] IV Last administered on 12/15/18 12:34; Start 12/14/18 at 23:00; Stop 12/15/18 at 22:59 Acetaminophen (Tylenol) 650 mg PRN Q6HRS PRN PO fever; Start 12/15/18 at 10:30 Albuterol Sulfate (Ventolin Neb Soln) 2.5 mg Q6HRS NEB Last administered on 12/15at 12:00; Start 12/15/18 at 12:00 Aspirin (Children'S Aspirin) 81 mg DAILY PO Last administered on 12/15/18 12:32 ; Start 12/15/18 at 11:00 Bisacodyl (Dulcolax Tab) 10 mg DAILY PO Last administered on 12/15/18 12:32; Start 12/15/18 at 11:00 Carbidopa/Levodopa (Sinemet 25/100) 1 tab TID PO Last administered on 12/15/18 12:32; Start 12/15/18 at 11:00 Magnesium Hydroxide (Milk Of Magnesia) 400 mg DAILY PO Last administered on 12/15 12:31; Start 12/15/18 at 11:00 Multivitamins (Thera M Plus) 1 tab DAILY PO Last administered on 12/15/18 12:31 ; Start 12/15/18 at 11:00 Sodium Monofluorophosphate (Fleet Adult) 133 ml PRN DAILY PRN RC CONSTIPATION; Start 12/15/18 at 10:30 Sertraline HCl (Zoloft) 50 mg DAILY PO Last administered on 12/15/18 12:32; Start 12/15/18 at 11:00 Tramadol HCl (Ultram) 25 mg PRN Q4HRS PRN PO MODERATE PAIN; Start 12/15/18 at 10 :30 Acetaminophen (Tylenol) 1,000 mg PRN Q6HRS PRN PO MILD PAIN; Start 12/15/18 at 10:30 Non-Formulary Medication (Alendronate Sodium (Fosamax)) 1 tab WEEKLY PO ; Start 12/22/18 at 09:00; Status UNV Bisacodyl (Dulcolax Supp) 10 mg PRN DAILY PRN [place] CONSTIPATION; Start 12/15/18 at 10:30 Calcium/Vitamin D (Oscal D 500mg/ 200uts) 1 tab BIDWMEALS PO ; Start 12/15/18 at 17:00 Vitamin D (Vitamin D3) 2,000 unit DAILY PO Last administered on 12/15/18at 12:33 ; Start 12/15/18 at 11:00 Donepezil HCl (Aricept) 10 mg QHS PO ; Start 12/15/18 at 21:00 Lactobacillus Rhamnosus (Culturelle) 1 cap BID PO ; Start 12/15/18 at 21:00 Levothyroxine Sodium (Synthroid) 25 mcg DAILY06 PO Last administered on at 12:32; Start 12/15/18 at 11:00 Non-Formulary Medication (Levothyroxine Sodium (Synthroid)) 1 tab DAILY PO ; Start 12/16/18 at 09:00; Status UNV Memantine (Namenda) 10 mg BID PO Last administered on 12/15/18at 12:33; Start 12/15/18 at 11:00 Nystatin (Mycostatin) 1 jefe TID TP ; Start 12/15/18 at 14:00; Status Cancel Simvastatin (Zocor) 40 mg QHS PO ; Start 12/15/18 at 21:00 Nystatin (Mycostatin) 1 jefe TID TP Last administered on 12/15/18at 12:34; Start 12/15/18 at 14:00 Active Scripts Active Mapap (Acetaminophen) 500 Mg Tablet 1,000 Mg PO PRN Q6HRS PRN 30 Days Calcium + Vitamin D Tablet (Calcium Carbonate/Vitamin D3) 1 Each Tablet 1 Each PO BID Aspirin 81 Mg Tab.chew 1 Tab PO DAILY Reported Nystatin 15 Gm Cream..g. 1 Jefe TP TID Synthroid (Levothyroxine Sodium) 25 Mcg Tablet 1 Tab PO DAILY Zoloft (Sertraline Hcl) 50 Mg Tablet 1 Tab PO DAILY Thera M Plus Tablet (Multivits,Ca,Minerals/Iron/FA) 1 Each Tablet 1 Each PO DAILY Probiotic (Lactobacillus Acidophilus) 1 Each Capsule 1 Each PO BID Tylenol (Acetaminophen) 325 Mg Tablet 2 Tab PO PRN Q6HRS PRN Tramadol Hcl 50 Mg Tablet 0.5 Tab PO PRN Q4HRS PRN Milk Of Magnesia (Magnesium Hydroxide) 400 Mg/5 Ml Oral.susp 400 Mg PO Albuterol Sulfate Neb Soln (Albuterol Sulfate) 2.5 Mg/3 Ml Vial.neb 2.5 Mg NEB Fleet Enema (Na Phos,M-B/Na Phos,Di-Ba) 133 Ml Enema 133 Ml RC PRN PRN Bisacodyl 10 Mg Supp.rect 10 Mg RC PRN DAILY PRN Vitamin D (Cholecalciferol (Vitamin D3)) 2,000 Unit Capsule 1 Cap PO DAILY Sinemet 25-100 Mg Tablet (Carbidopa/Levodopa) 1 Each Tablet 1 Tab PO TID Dulcolax (Bisacodyl) 5 Mg Tablet.dr 2 Tab PO DAILY Levothyroxine Sodium 25 Mcg Tablet 1 Tab PO DAILY Simvastatin 40 Mg Tablet 1 Tab PO QHS Fosamax (Alendronate Sodium) 70 Mg Tablet 1 Tab PO WEEKLY Namenda (Memantine Hcl) 10 Mg Tablet 1 Tab PO BID Aricept (Donepezil Hcl) 10 Mg Tablet 1 Tab PO QHS Vitals/I & O Vital Sign - Last 24 Hours 12/14/18 12/14/18 12/14/18 12/14/18 18:17 22:00 22:30 23:30 Temp 101.0 101.0 Pulse 76 63 60 60 Resp 18 18 18 19 B/P (MAP) 101/50 (67) Pulse Ox 95 94 95 94 O2 Delivery Room Air 12/15/18 12/15/18 12/15/18 12/15/18 00:54 02:17 02:49 07:57 Temp 97.3 97.4 98.5 97.3 97.4 98.5 Pulse 61 61 69 Resp 17 17 18 B/P (MAP) 144/77 (99) 121/62 (81) 159/71 (100) Pulse Ox 95 91 93 O2 Delivery Room Air Room Air Room Air Room Air 12/15/18 12/15/18 08:00 10:47 Temp 97.6 97.6 Pulse 85 Resp 12 B/P (MAP) 115/70 (85) Pulse Ox 93 O2 Delivery Room Air Room Air Intake and Output 12/14/18 12/14/18 12/15/18 15:00 23:00 07:00 Intake Total 1000 ml Balance 1000 ml RUBEN LANCE MD Dec 15, 2018 13:08
[2018-12-15] MEDS ORDERED: NYSTATIN 100,000 UNIT/GM TOPICAL CREAM 15GM TUBE. TP SCH (14:00)
[2018-12-15] MEDS: cefTRIAXone IV Push 1 GM VIAL. IVP SCH (15:10)
[2018-12-15] MEDS: CALCIUM CARB/VIT D3 500/200 TABLET. PO SCH (17:10)
[2018-12-15] MEDS: LACTOBACILLUS RHAMNOSUS GG 1 CAPSULE. PO SCH (21:00)
[2018-12-15] MEDS: DONEPEZIL HCL 10 MG TABLET. PO SCH (21:01)
[2018-12-15] MEDS: SIMVASTATIN 40 MG TABLET. PO SCH (21:02)
[2018-12-16] MEDS: ALBUTEROL SULFATE 2.5 MG/3 ML NEBU. NEB SCH ×4 (00:11→20:32)
[2018-12-16 03:40] VITALS: BP 121/68
[2018-12-16] MEDS: LEVOTHYROXINE 25 MCG TABLET. PO SCH (05:32)
[2018-12-16 06:06] LABS: BASO % 1 % (0-3); EOS # 0.4 x10^3/uL (0.0-0.7); EOS % 7 % (0-3); HEMATOCRIT 34.8 % (36.0-47.0); HEMOGLOBIN 11.3 g/dL (12.0-15.5); LYMPH # 1.4 x10^3/uL (1.0-4.8); LYMPH % 22 % (24-48); MEAN CORPUSCULAR HEMOGLOBIN 29 pg (25-35); MEAN CORPUSCULAR HGB CONC 32 g/dL (31-37); MEAN CORPUSCULAR VOLUME 89 fL (79-100); MONO # 0.5 x10^3/uL (0.0-1.1); MONO % 8 % (0-9); NEUT % 63 % (31-73); PLATELET COUNT 164 x10^3/uL (140-400); RED CELL DISTRIBUTION WIDTH 15.4 % (11.5-14.5); WHITE BLOOD COUNT 6.4 x10^3/uL (4.0-11.0)
[2018-12-16 06:41] LABS: CALCIUM 8.4 mg/dL (8.5-10.1); CREATININE 0.8 mg/dL (0.6-1.0); GFR 68.8; POTASSIUM 3.7 mmol/L (3.5-5.1)
[2018-12-16 06:58] LABS: FREE T4 1.03 ng/dL (0.76-1.46); THYROID STIM HORMONE (TSH) 3.252 uIU/mL (0.358-3.74)
[2018-12-16 07:00] VITALS: BP 144/71
--- NOTE | 2018-12-16 07:10 | NUR ---
I have reviewed the notes, assessment, and /or procedures preformed by Deepika Chen nursing home aide and concur with her documentation unless otherwise noted.
[2018-12-16] MEDS: CALCIUM CARB/VIT D3 500/200 TABLET. PO SCH ×2 (09:00→17:19)
[2018-12-16] MEDS ORDERED: LEVOTHYROXINE SODIUM PO SCH (09:00)
[2018-12-16] MEDS: CARBIDOPA/LEVODOPA 25/100MG TABLET PO SCH ×3 (09:01→20:26)
[2018-12-16] MEDS: MEMANTINE 10 MG TABLET. PO SCH ×2 (09:01→20:26)
[2018-12-16] MEDS: ASPIRIN CHEWABLE 81 MG TABLET. PO SCH (09:01)
[2018-12-16] MEDS: MULTIVITAMIN with MINERAL TABLET. PO SCH (09:01)
[2018-12-16] MEDS: BISACODYL 5 MG TABLET.DR. PO SCH (09:01)
[2018-12-16] MEDS: SERTRALINE 50 MG TABLET. PO SCH (09:01)
[2018-12-16] MEDS: LACTOBACILLUS RHAMNOSUS GG 1 CAPSULE. PO SCH ×2 (09:01→20:26)
[2018-12-16] MEDS: MAGNESIUM HYDROXIDE 2,400 MG/30 ML ORAL.SUSP. PO SCH (09:01)
[2018-12-16] MEDS: CHOLECALCIFEROL (VITAMIN D3) 1,000 UNIT TABLET PO SCH (09:01)
[2018-12-16] MEDS: NYSTATIN 100,000 UNIT/GM TOPICAL CREAM 15GM TUBE. TP SCH ×3 (09:02→21:31)
[2018-12-16 11:00] VITALS: BP 116/55
--- NOTE | 2018-12-16 12:52 | PDOC ---
PROGRESS NOTES Chief Complaint Chief Complaint Acute encephalopathy secondary to urinary tract infection Moderate to severe dehydration Hypernatremia secondary to the above Generalized weakness History of Parkinson's disease History of Alzheimer's type dementia History of hypothyroidism Plan: Follow results of culture Resume home medications Continue with antibiotics awaiting for results of cultures Prophylaxis with SCD and teds History of Present Illness History of Present Illness Patient laying in bed in no acute distress. Seems to be a little bit more awake compared to yesterday. I'm unable to have a meaningful conversation with the patient but she seems to be back at her usual baseline. Hemodynamically stable continue waiting for results of cultures Vitals Vitals Vital Signs Date Time Temp Pulse Resp B/P (MAP) Pulse Ox O2 Delivery O2 Flow Rate FiO2 12/16/18 11:00 98.5 65 17 116/55 (75) 95 Room Air 98.5 Physical Exam General: Alert, No acute distress Heart: Regular rate, Normal S1, Normal S2 Lungs: Clear Abdomen: Normal bowel sounds, Soft, No tenderness Extremities: No clubbing, No cyanosis Skin: No rashes, No breakdown Labs LABS Laboratory Tests Test 12/16/18 05:45 White Blood Count 6.4 x10^3/uL (4.0-11.0) Red Blood Count 3.90 x10^6/uL (3.50-5.40) Hemoglobin 11.3 g/dL (12.0-15.5) Hematocrit 34.8 % (36.0-47.0) Mean Corpuscular Volume 89 fL (79-100) Mean Corpuscular Hemoglobin 29 pg (25-35) Mean Corpuscular Hemoglobin Concent 32 g/dL (31-37) Red Cell Distribution Width 15.4 % (11.5-14.5) Platelet Count 164 x10^3/uL (140-400) Neutrophils (%) (Auto) 63 % (31-73) Lymphocytes (%) (Auto) 22 % (24-48) Monocytes (%) (Auto) 8 % (0-9) Eosinophils (%) (Auto) 7 % (0-3) Basophils (%) (Auto) 1 % (0-3) Neutrophils # (Auto) 4.0 x10^3uL (1.8-7.7) Lymphocytes # (Auto) 1.4 x10^3/uL (1.0-4.8) Monocytes # (Auto) 0.5 x10^3/uL (0.0-1.1) Eosinophils # (Auto) 0.4 x10^3/uL (0.0-0.7) Basophils # (Auto) 0.0 x10^3/uL (0.0-0.2) Sodium Level 152 mmol/L (136-145) Potassium Level 3.7 mmol/L (3.5-5.1) Chloride Level 117 mmol/L (98-107) Carbon Dioxide Level 24 mmol/L (21-32) Anion Gap 11 (6-14) Blood Urea Nitrogen 24 mg/dL (7-20) Creatinine 0.8 mg/dL (0.6-1.0) Estimated GFR (Cockcroft-Gault) 68.8 Glucose Level 84 mg/dL (70-99) Calcium Level 8.4 mg/dL (8.5-10.1) Thyroid Stimulating Hormone (TSH) 3.252 uIU/mL (0.358-3.74) Free Thyroxine 1.03 ng/dL (0.76-1.46) Assessment and Plan Assessmemt and Plan Problems Medical Problems: (1) Hypernatremia Status: Acute Comment Review of Relevant I have reviewed the following items josephine (where applicable) has been applied. Labs Laboratory Tests Test 12/14/18 18:33 12/14/18 19:15 12/14/18 22:15 12/15/18 00:38 Urine Collection Type Unknown Urine Color [place] Urine Clarity Turbid Urine pH 7.5 Urine Specific [place] 1.025 Urine Protein 100 mg/dL (NEG-TRACE) Urine Glucose (UA) Negative mg/dL (NEG) Urine Ketones (Stick) Trace mg/dL (NEG) Urine Blood Large (NEG) Urine Nitrite Positive (NEG) Urine Bilirubin Small (NEG) Urine Urobilinogen Dipstick 1.0 mg/dL (0.2 mg/dL) Urine Leukocyte Esterase Large (NEG) Urine RBC >40 /HPF (0-2) Urine WBC 20-40 /HPF (0-4) Urine Bacteria Many /HPF (0-FEW) White Blood Count 8.0 x10^3/uL (4.0-11.0) Red Blood Count 4.49 x10^6/uL (3.50-5.40) Hemoglobin 12.7 g/dL (12.0-15.5) Hematocrit 39.4 % (36.0-47.0) Mean Corpuscular Volume 88 fL (79-100) Mean Corpuscular Hemoglobin 28 pg (25-35) Mean Corpuscular Hemoglobin Concent 32 g/dL (31-37) Red Cell Distribution Width 14.8 % (11.5-14.5) Platelet Count 215 x10^3/uL (140-400) Neutrophils (%) (Auto) 66 % (31-73) Lymphocytes (%) (Auto) 24 % (24-48) Monocytes (%) (Auto) 8 % (0-9) Eosinophils (%) (Auto) 2 % (0-3) Basophils (%) (Auto) 0 % (0-3) Neutrophils # (Auto) 5.3 x10^3uL (1.8-7.7) Lymphocytes # (Auto) 1.9 x10^3/uL (1.0-4.8) Monocytes # (Auto) 0.7 x10^3/uL (0.0-1.1) Eosinophils # (Auto) 0.1 x10^3/uL (0.0-0.7) Basophils # (Auto) 0.0 x10^3/uL (0.0-0.2) Prothrombin Time 14.9 SEC (11.7-14.0) Prothromb Time International Ratio 1.2 (0.8-1.1) Sodium Level 151 mmol/L (136-145) Potassium Level 3.7 mmol/L (3.5-5.1) Chloride Level 114 mmol/L (98-107) Carbon Dioxide Level 27 mmol/L (21-32) Anion Gap 10 (6-14) Blood Urea Nitrogen 33 mg/dL (7-20) Creatinine 1.0 mg/dL (0.6-1.0) Estimated GFR (Cockcroft-Gault) 53.2 BUN/Creatinine Ratio 33 (6-20) Glucose Level 98 mg/dL (70-99) Lactic Acid Level 1.3 mmol/L (0.4-2.0) Calcium Level 8.6 mg/dL (8.5-10.1) Total Bilirubin 0.5 mg/dL (0.2-1.0) Aspartate Amino Transf (AST/SGOT) 34 U/L (15-37) Alanine Aminotransferase (ALT/SGPT) 23 U/L (14-59) Alkaline Phosphatase 92 U/L (46-116) Troponin I Quantitative < 0.017 ng/mL (0.000-0.055) Total Protein 6.5 g/dL (6.4-8.2) Albumin 3.0 g/dL (3.4-5.0) Albumin/Globulin Ratio 0.9 (1.0-1.7) Salicylates Level < 2.8 mg/dL (2.8-20.0) Salicylate Last Dose Date Unk Salicylate Last Dose Time Unk Influenza Type A Antigen Negative (NEGATIVE) Influenza Type B Antigen Negative (NEGATIVE) Nasal Screen MRSA (PCR) Positive (Negative) Test 12/16/18 05:45 White Blood Count 6.4 x10^3/uL (4.0-11.0) Red Blood Count 3.90 x10^6/uL (3.50-5.40) Hemoglobin 11.3 g/dL (12.0-15.5) Hematocrit 34.8 % (36.0-47.0) Mean Corpuscular Volume 89 fL (79-100) Mean Corpuscular Hemoglobin 29 pg (25-35) Mean Corpuscular Hemoglobin Concent 32 g/dL (31-37) Red Cell Distribution Width 15.4 % (11.5-14.5) Platelet Count 164 x10^3/uL (140-400) Neutrophils (%) (Auto) 63 % (31-73) Lymphocytes (%) (Auto) 22 % (24-48) Monocytes (%) (Auto) 8 % (0-9) Eosinophils (%) (Auto) 7 % (0-3) Basophils (%) (Auto) 1 % (0-3) Neutrophils # (Auto) 4.0 x10^3uL (1.8-7.7) Lymphocytes # (Auto) 1.4 x10^3/uL (1.0-4.8) Monocytes # (Auto) 0.5 x10^3/uL (0.0-1.1) Eosinophils # (Auto) 0.4 x10^3/uL (0.0-0.7) Basophils # (Auto) 0.0 x10^3/uL (0.0-0.2) Sodium Level 152 mmol/L (136-145) Potassium Level 3.7 mmol/L (3.5-5.1) Chloride Level 117 mmol/L (98-107) Carbon Dioxide Level 24 mmol/L (21-32) Anion Gap 11 (6-14) Blood Urea Nitrogen 24 mg/dL (7-20) Creatinine 0.8 mg/dL (0.6-1.0) Estimated GFR (Cockcroft-Gault) 68.8 Glucose Level 84 mg/dL (70-99) Calcium Level 8.4 mg/dL (8.5-10.1) Thyroid Stimulating Hormone (TSH) 3.252 uIU/mL (0.358-3.74) Free Thyroxine 1.03 ng/dL (0.76-1.46) Laboratory Tests Test 12/16/18 05:45 White Blood Count 6.4 x10^3/uL (4.0-11.0) Red Blood Count 3.90 x10^6/uL (3.50-5.40) Hemoglobin 11.3 g/dL (12.0-15.5) Hematocrit 34.8 % (36.0-47.0) Mean Corpuscular Volume 89 fL (79-100) Mean Corpuscular Hemoglobin 29 pg (25-35) Mean Corpuscular Hemoglobin Concent 32 g/dL (31-37) Red Cell Distribution Width 15.4 % (11.5-14.5) Platelet Count 164 x10^3/uL (140-400) Neutrophils (%) (Auto) 63 % (31-73) Lymphocytes (%) (Auto) 22 % (24-48) Monocytes (%) (Auto) 8 % (0-9) Eosinophils (%) (Auto) 7 % (0-3) Basophils (%) (Auto) 1 % (0-3) Neutrophils # (Auto) 4.0 x10^3uL (1.8-7.7) Lymphocytes # (Auto) 1.4 x10^3/uL (1.0-4.8) Monocytes # (Auto) 0.5 x10^3/uL (0.0-1.1) Eosinophils # (Auto) 0.4 x10^3/uL (0.0-0.7) Basophils # (Auto) 0.0 x10^3/uL (0.0-0.2) Sodium Level 152 mmol/L (136-145) Potassium Level 3.7 mmol/L (3.5-5.1) Chloride Level 117 mmol/L (98-107) Carbon Dioxide Level 24 mmol/L (21-32) Anion Gap 11 (6-14) Blood Urea Nitrogen 24 mg/dL (7-20) Creatinine 0.8 mg/dL (0.6-1.0) Estimated GFR (Cockcroft-Gault) 68.8 Glucose Level 84 mg/dL (70-99) Calcium Level 8.4 mg/dL (8.5-10.1) Thyroid Stimulating Hormone (TSH) 3.252 uIU/mL (0.358-3.74) Free Thyroxine 1.03 ng/dL (0.76-1.46) Microbiology 12/14/18 Blood Culture - Preliminary, Resulted NO GROWTH AFTER 1 DAY Medications Current Medications Sodium Chloride 1,000 ml @ 1,000 mls/hr 1X ONCE IV Last administered on at 19:22; Start 12/14/18 at 19:15; Stop 12/14/18 at 20:14; Status DC Ceftriaxone Sodium (Rocephin) 1 gm 1X ONCE IVP Last administered on 12/14/18at 19:22; Start 12/14/18 at 19:15; Stop 12/14/18 at 19:16; Status DC Acetaminophen (Tylenol) 650 mg 1X ONCE PO ; Start 12/14/18 at 19:15; Stop at 19:16; Status DC Acetaminophen (Tylenol Supp) 650 mg 1X ONCE ND Last administered on 12/14/18at 19:22; Start 12/14/18 at 19:30; Stop 12/14/18 at 19:31; Status DC Sodium Chloride 1,000 ml @ 75 mls/hr [id number] IV Last administered on 12/15/18at 12:34; Start 12/14/18 at 23:00; Stop 12/15/18 at 22:59; Status DC Acetaminophen (Tylenol) 650 mg PRN Q6HRS PRN PO fever; Start 12/15/18 at 10:30 Albuterol Sulfate (Ventolin Neb Soln) 2.5 mg Q6HRS NEB Last administered on 3/ 10/19at 07:21; Start 12/15/18 at 12:00 Aspirin (Children'S Aspirin) 81 mg DAILY PO Last administered on 12/16/18 09: 01; Start 12/15/18 at 11:00 Bisacodyl (Dulcolax Tab) 10 mg DAILY PO Last administered on 12/16/18 09:01; Start 12/15/18 at 11:00 Carbidopa/Levodopa (Sinemet 25/100) 1 tab TID PO Last administered on 09:01; Start 12/15/18 at 11:00 Magnesium Hydroxide (Milk Of Magnesia) 400 mg DAILY PO Last administered on 09:01; Start 12/15/18 at 11:00 Multivitamins (Thera M Plus) 1 tab DAILY PO Last administered on 12/16/18 09: 01; Start 12/15/18 at 11:00 Sodium Monofluorophosphate (Fleet Adult) 133 ml PRN DAILY PRN RC CONSTIPATION; Start 12/15/18 at 10:30 Sertraline HCl (Zoloft) 50 mg DAILY PO Last administered on 12/16/18 09:01; Start 12/15/18 at 11:00 Tramadol HCl (Ultram) 25 mg PRN Q4HRS PRN PO MODERATE PAIN; Start 12/15/18 at 10 :30 Acetaminophen (Tylenol) 1,000 mg PRN Q6HRS PRN PO MILD PAIN; Start 12/15/18 at 10:30 Non-Formulary Medication (Alendronate Sodium (Fosamax)) 1 tab WEEKLY PO ; Start 12/22/18 at 09:00; Status UNV Bisacodyl (Dulcolax Supp) 10 mg PRN DAILY PRN ND CONSTIPATION; Start 12/15/18 at 10:30 Calcium/Vitamin D (Oscal D 500mg/ 200uts) 1 tab BIDWMEALS PO Last administered on 12/16/18 09:00; Start 12/15/18 at 17:00 Vitamin D (Vitamin D3) 2,000 unit DAILY PO Last administered on 12/16/18 09:01 ; Start 12/15/18 at 11:00 Donepezil HCl (Aricept) 10 mg QHS PO Last administered on 12/15/18 21:01; Start 12/15/18 at 21:00 Lactobacillus Rhamnosus (Culturelle) 1 cap BID PO Last administered on 09:01; Start 12/15/18 at 21:00 Levothyroxine Sodium (Synthroid) 25 mcg DAILY06 PO Last administered on at 05:32; Start 12/15/18 at 11:00 Non-Formulary Medication (Levothyroxine Sodium (Synthroid)) 1 tab DAILY PO ; Start 12/16/18 at 09:00; Status UNV Memantine (Namenda) 10 mg BID PO Last administered on 12/16/18at 09:01; Start at 11:00 Nystatin (Mycostatin) 1 jefe TID TP ; Start 12/15/18 at 14:00; Status Cancel Simvastatin (Zocor) 40 mg QHS PO Last administered on 12/15/18 21:02; Start 12/15/18 at 21:00 Nystatin (Mycostatin) 1 jefe TID TP Last administered on 12/16/18at 09:02; Start 12/15/18 at 14:00 Ceftriaxone Sodium (Rocephin) 1 gm Q24H IVP Last administered on 12/15/18at 15:10 ; Start 12/15/18 at 14:00 Active Scripts Active Mapap (Acetaminophen) 500 Mg Tablet 1,000 Mg PO PRN Q6HRS PRN 30 Days Calcium + Vitamin D Tablet (Calcium Carbonate/Vitamin D3) 1 Each Tablet 1 Each PO BID Aspirin 81 Mg Tab.chew 1 Tab PO DAILY Reported Nystatin 15 Gm Cream..g. 1 Jefe TP TID Synthroid (Levothyroxine Sodium) 25 Mcg Tablet 1 Tab PO DAILY Zoloft (Sertraline Hcl) 50 Mg Tablet 1 Tab PO DAILY Thera M Plus Tablet (Multivits,Ca,Minerals/Iron/FA) 1 Each Tablet 1 Each PO DAILY Probiotic (Lactobacillus Acidophilus) 1 Each Capsule 1 Each PO BID Tylenol (Acetaminophen) 325 Mg Tablet 2 Tab PO PRN Q6HRS PRN Tramadol Hcl 50 Mg Tablet 0.5 Tab PO PRN Q4HRS PRN Milk Of Magnesia (Magnesium Hydroxide) 400 Mg/5 Ml Oral.susp 400 Mg PO Albuterol Sulfate Neb Soln (Albuterol Sulfate) 2.5 Mg/3 Ml Vial.neb 2.5 Mg NEB Fleet Enema (Na Phos,M-B/Na Phos,Di-Ba) 133 Ml Enema 133 Ml RC PRN PRN Bisacodyl 10 Mg Supp.rect 10 Mg RC PRN DAILY PRN Vitamin D (Cholecalciferol (Vitamin D3)) 2,000 Unit Capsule 1 Cap PO DAILY Sinemet 25-100 Mg Tablet (Carbidopa/Levodopa) 1 Each Tablet 1 Tab PO TID Dulcolax (Bisacodyl) 5 Mg Tablet.dr 2 Tab PO DAILY Levothyroxine Sodium 25 Mcg Tablet 1 Tab PO DAILY Simvastatin 40 Mg Tablet 1 Tab PO QHS Fosamax (Alendronate Sodium) 70 Mg Tablet 1 Tab PO WEEKLY Namenda (Memantine Hcl) 10 Mg Tablet 1 Tab PO BID Aricept (Donepezil Hcl) 10 Mg Tablet 1 Tab PO QHS Vitals/I & O Vital Sign - Last 24 Hours 12/15/18 12/15/18 12/15/18 12/15/18 15:28 19:41 20:00 20:46 Temp 97.5 97.5 Pulse 69 72 Resp 16 19 B/P (MAP) 110/62 (78) 112/45 (67) Pulse Ox 93 94 96 O2 Delivery Room Air Room Air Room Air Room Air 12/15/18 12/16/18 12/16/18 12/16/18 23:30 00:10 03:40 07:00 Temp 98.0 98.1 98.1 98.0 98.1 98.1 Pulse 70 69 67 Resp 18 18 16 B/P (MAP) 141/69 (93) 121/68 (85) 144/71 (95) Pulse Ox 92 93 94 O2 Delivery Room Air Room Air Room Air Room Air 12/16/18 12/16/18 12/16/18 07:22 08:00 11:00 Temp 98.5 98.5 Pulse 65 Resp 17 B/P (MAP) 116/55 (75) Pulse Ox 94 95 O2 Delivery Room Air Room Air Room Air Intake and Output 12/15/18 12/15/18 12/16/18 14:59 22:59 06:59 Intake Total 600 ml 300 ml 440 ml Balance 600 ml 300 ml 440 ml RUBEN LANCE MD Dec 16, 2018 12:52
[2018-12-16] MEDS: cefTRIAXone IV Push 1 GM VIAL. IVP SCH (14:46)
[2018-12-16 15:00] VITALS: BP 139/67
[2018-12-16 19:00] VITALS: BP 119/74
[2018-12-16] MEDS: DONEPEZIL HCL 10 MG TABLET. PO SCH (20:26)
[2018-12-16] MEDS: SIMVASTATIN 40 MG TABLET. PO SCH (20:26)
[2018-12-16 23:00] VITALS: BP 132/68
[2018-12-17 03:00] VITALS: BP 160/72
[2018-12-17] MEDS: LEVOTHYROXINE 25 MCG TABLET. PO SCH (06:33)
[2018-12-17 07:00] VITALS: BP 131/53
[2018-12-17] MEDS: ALBUTEROL SULFATE 2.5 MG/3 ML NEBU. NEB SCH ×2 (07:31→11:21)
[2018-12-17] MEDS: ASPIRIN CHEWABLE 81 MG TABLET. PO SCH (08:50)
[2018-12-17] MEDS: LACTOBACILLUS RHAMNOSUS GG 1 CAPSULE. PO SCH (08:50)
[2018-12-17] MEDS: CARBIDOPA/LEVODOPA 25/100MG TABLET PO SCH ×2 (08:50→14:06)
[2018-12-17] MEDS: MAGNESIUM HYDROXIDE 2,400 MG/30 ML ORAL.SUSP. PO SCH (08:50)
[2018-12-17] MEDS: MULTIVITAMIN with MINERAL TABLET. PO SCH (08:50)
[2018-12-17] MEDS: BISACODYL 5 MG TABLET.DR. PO SCH (08:51)
[2018-12-17] MEDS: CHOLECALCIFEROL (VITAMIN D3) 1,000 UNIT TABLET PO SCH (08:51)
[2018-12-17] MEDS: MEMANTINE 10 MG TABLET. PO SCH (08:51)
[2018-12-17] MEDS: SERTRALINE 50 MG TABLET. PO SCH (08:52)
[2018-12-17] MEDS: CALCIUM CARB/VIT D3 500/200 TABLET. PO SCH (08:52)
[2018-12-17] MEDS: NYSTATIN 100,000 UNIT/GM TOPICAL CREAM 15GM TUBE. TP SCH ×2 (09:00→14:07)
--- NOTE | 2018-12-17 09:19 | NUR ---
IP: Pt is mrsa screen + requiring contact precautions.
[2018-12-17 11:00] VITALS: BP 121/63
--- NOTE | 2018-12-17 12:06 | NUR ---
SW following for discharge planning. Discussed with RN. Pt is from [facility]. RN advised possible discharge back to [place] today. SW awaiting confirmation of discharge.
[2018-12-17] MEDS ORDERED: CIPR500T94 PO (13:11)
--- NOTE | 2018-12-17 13:13 | SNU/HH DC ---
DISCHARGE ORDERS DISCHARGE INFORMATION: DISCHARGE DATE: Dec 17, 2018 FINAL DIAGNOSIS Problems Medical Problems: (1) Hypernatremia (2) UTI (3) Encephalopathy Status: Acute CONDITION ON DISCHARGE: Stable [facility]: SNF STAY <30 DAYS: No POST DISCHARGE ORDERS: ACTIVITY ORDERS: Other, see below WEIGHT BEARING STATUS: As tolerated WOUND/INCISION CARE: Other, see below TREATMENT/EQUIPMENT ORDERS: Physical Therapy For: Evalulation/Treatment DISCHARGE MEDICATIONS: Home Meds Active Scripts Ciprofloxacin Hcl (CIPRO) 500 Mg Tablet, 1 TAB PO BID for UTI for 3 Days, #6 TAB Prov:RUBEN LANCE MD 12/17/18 Acetaminophen (MAPAP) 500 Mg Tablet, 1000 MG PO PRN Q6HRS PRN for PAIN for 30 Days, TAB Prov:SUSANA DENTON MD 10/18/16 Calcium Carbonate/Vitamin D3 (CALCIUM + VITAMIN D TABLET) 1 Each Tablet, 1 EACH PO BID, #60 TAB Prov:SUSANA DENTON MD 10/14/16 Aspirin (ASPIRIN) 81 Mg Tab.chew, 1 TAB PO DAILY, #30 TAB 3 Refills Prov:SUSANA DENTON MD 10/14/16 Reported Medications Nystatin (NYSTATIN) 15 Gm Cream..g., 1 HANG TP TID, #30 GM 12/21/17 Levothyroxine Sodium (SYNTHROID) 25 Mcg Tablet, 1 TAB PO DAILY, #30 TAB 5 Refills 12/21/17 Sertraline Hcl (ZOLOFT) 50 Mg Tablet, 1 TAB PO DAILY, #30 TAB 2 Refills 12/21/17 Multivits,Ca,Minerals/Iron/FA (Thera M Plus Tablet) 1 Each Tablet, 1 EACH PO DAILY, TAB 12/21/17 Lactobacillus Acidophilus (PROBIOTIC) 1 Each Capsule, 1 EACH PO BID, CAP 12/21/17 Acetaminophen (TYLENOL) 325 Mg Tablet, 2 TAB PO PRN Q6HRS PRN for fever, #30 TAB 07/31/17 Tramadol Hcl (TRAMADOL HCL) 50 Mg Tablet, 0.5 TAB PO PRN Q4HRS PRN for MODERATE PAIN, #30 TAB 07/31/17 Magnesium Hydroxide (MILK OF MAGNESIA) 400 Mg/5 Ml Oral.susp, 400 MG PO, MISC 07/31/17 Albuterol Sulfate (ALBUTEROL SULFATE NEB SOLN) 2.5 Mg/3 Ml Vial.neb, 2.5 MG NEB for FOR ASTHMA, EACH 0 Refills 07/31/17 Na Phos,M-B/Na Phos,Di-Ba (FLEET ENEMA) 133 Ml Enema, 133 ML RC PRN PRN for CONSTIPATION, EACH 07/31/17 Bisacodyl (BISACODYL) 10 Mg Supp.rect, 10 MG RC PRN DAILY PRN for CONSTIPATION, SUPP.RECT 0 Refills 07/31/17 Cholecalciferol (Vitamin D3) (VITAMIN D) 2,000 Unit Capsule, 1 CAP PO DAILY, # 30 CAP 3 Refills 07/31/17 Carbidopa/Levodopa (SINEMET 25-100 MG TABLET) 1 Each Tablet, 1 TAB PO TID, TAB 07/31/17 Bisacodyl (DULCOLAX) 5 Mg Tablet.dr, 2 TAB PO DAILY, #2 TAB 07/31/17 Levothyroxine Sodium (LEVOTHYROXINE SODIUM) 25 Mcg Tablet, 1 TAB PO DAILY, #30 TAB 5 Refills 04/27/16 Simvastatin (SIMVASTATIN) 40 Mg Tablet, 1 TAB PO QHS, #30 TAB 5 Refills 04/27/16 Alendronate Sodium (FOSAMAX) 70 Mg Tablet, 1 TAB PO WEEKLY, #4 TAB 11 Refills 04/27/16 Memantine Hcl (NAMENDA) 10 Mg Tablet, 1 TAB PO BID, #180 TAB 1 Refill 04/27/16 Donepezil Hcl (ARICEPT) 10 Mg Tablet, 1 TAB PO QHS, #30 TAB 5 Refills 04/27/16 RUBEN LANCE MD Dec 17, 2018 13:12
[2018-12-17] MEDS ORDERED: CIPROFLOXACIN HCL 250 MG TABLET. PO SCH (13:30)
--- NOTE | 2018-12-17 15:22 | NUR ---
Discharge Note: [facility] Discharge instructions and discharge home medications reviewed with Other facility and a copy given. All questions have been answered and understanding verbalized. The following instructions and handouts were given: Patient transfer packet Discontinued lines and drains: Peripheral IV intact. Patient discharged to [facility]
--- NOTE | 2018-12-17 15:29 | NUR ---
Pt picked up by transportation at 1514. Called report to [facility].
--- NOTE | 2018-12-17 20:44 | PDOC3 ---
Discharge Summary Visit Information Date of Admission: Dec 15, 2018 Date of Discharge: Dec 17, 2018 Admitting Diagnosis: UTI Final Diagnosis Problems Medical Problems: (1) Hypernatremia Status: Acute Brief Hospital Course Allergies Allergies Coded Allergies Type Severity Reaction Last Updated Verified I S O L A T I O N *CONTACT* Allergy Unknown 12/17/18 Yes No Known Medication Allergies Allergy Unknown 12/17/18 Yes Vital Signs Vital Signs Date Time Temp Pulse Resp B/P (MAP) Pulse Ox O2 Delivery O2 Flow Rate FiO2 12/17/18 11:21 Room Air 12/17/18 11:00 98.2 68 17 121/63 (82) 94 98.2 Lab Results Laboratory Tests Test 12/16/18 05:45 White Blood Count 6.4 x10^3/uL (4.0-11.0) Red Blood Count 3.90 x10^6/uL (3.50-5.40) Hemoglobin 11.3 g/dL (12.0-15.5) Hematocrit 34.8 % (36.0-47.0) Mean Corpuscular Volume 89 fL (79-100) Mean Corpuscular Hemoglobin 29 pg (25-35) Mean Corpuscular Hemoglobin Concent 32 g/dL (31-37) Red Cell Distribution Width 15.4 % (11.5-14.5) Platelet Count 164 x10^3/uL (140-400) Neutrophils (%) (Auto) 63 % (31-73) Lymphocytes (%) (Auto) 22 % (24-48) Monocytes (%) (Auto) 8 % (0-9) Eosinophils (%) (Auto) 7 % (0-3) Basophils (%) (Auto) 1 % (0-3) Neutrophils # (Auto) 4.0 x10^3uL (1.8-7.7) Lymphocytes # (Auto) 1.4 x10^3/uL (1.0-4.8) Monocytes # (Auto) 0.5 x10^3/uL (0.0-1.1) Eosinophils # (Auto) 0.4 x10^3/uL (0.0-0.7) Basophils # (Auto) 0.0 x10^3/uL (0.0-0.2) Sodium Level 152 mmol/L (136-145) Potassium Level 3.7 mmol/L (3.5-5.1) Chloride Level 117 mmol/L (98-107) Carbon Dioxide Level 24 mmol/L (21-32) Anion Gap 11 (6-14) Blood Urea Nitrogen 24 mg/dL (7-20) Creatinine 0.8 mg/dL (0.6-1.0) Estimated GFR (Cockcroft-Gault) 68.8 Glucose Level 84 mg/dL (70-99) Calcium Level 8.4 mg/dL (8.5-10.1) Thyroid Stimulating Hormone (TSH) 3.252 uIU/mL (0.358-3.74) Free Thyroxine 1.03 ng/dL (0.76-1.46) Brief Hospital Course Patient is an 83-year-old female with past medical history of dementia and Parkinson's disease who was sent from her [facility] due to reports of "altered mental status" the history is taken from report from emergency department physician was able to get history from family members were unfortunately not at bedside anymore. The patient at the time of my evaluation is in no apparent distress. Patient retracts to noxious stimuli in seems to be moving all extremities. Patient recently responds to verbal stimuli when I call her name. She will not open her eyes and will not engage in conversation. The patient baseline seems to be put we are witnessing at the present time. The patient did not percent fever chills or diaphoresis no reason cold-like symptoms and no recent [id number] medications or changes to her home medication regimen either. Patient was evaluated in the emergency department and diagnosed with a UTI which could be contributing to her altered mental status. I have explained the plan of care to patient unfortunately had taking she is able to understand he is in no apparent distress at the time of my note breathing normally with coarse breath sounds especially in the bilateral lower lungs no peripheral edema reported ER course: Patient is a 83 year old female who presents with AMS and fever. She was transported from [facility] and upon arrival she was somnolent but AAOx3. [place] [facility] labs a 1400 today and it showed hypernatremia and UA showed >50 wbc and rbc / hpf, as well as multiple bacteria and positive nitrates. She was able to follow commands and opened her eyes to speech. She denied pain, shortness of breath, and n/v. She has a history of parkinsons, dementia, hypothyroidism, and afib. Patient admitted for treatment of UTI patient recovered quite quickly despite all her comorbidities. She tolerated iV antibiotics well, she will continue with ciprofloxacin orally for 3 day more days. Cultures were negative. Hemodynamically stable at the time of discharge. She will be going back to her [facility]. High risk for readmission. Lungs kclear to auscultation good inspiratory CVS s1s2 rr no murmurs Discharge Information Condition at Discharge: Improved Follow Up: Weeks Disposition/Orders: D/C to Home Scheduled Alendronate Sodium (Fosamax) 70 Mg Tablet, 1 TAB PO WEEKLY, #4 Ref 11 (Reported) Entered as Reported by: KAREN FLAHERTY on 04/27/16 1627 Last Action: Converted on 12/15/181017 by RUBEN LANCE MD Aspirin (Aspirin) 81 Mg Tab.chew, 1 TAB PO DAILY, #30 Ref 3 Prescribed by: SUSANA DENTON on 10/14/16 0754 Last Action: Continued on 12/15/181017 by RUBEN LANCE MD Bisacodyl (Dulcolax) 5 Mg Tablet.dr, 2 TAB PO DAILY, #2 (Reported) Entered as Reported by: CHUCKY ECHOLS on 07/31/17 1631 Last Action: Continued on 12/15/181017 by RUBEN LANCE MD Calcium Carbonate/Vitamin D3 (Calcium + Vitamin D Tablet) 1 Each Tablet, 1 EACH PO BID, #60 Prescribed by: SUSANA DENTON on 10/14/16 0755 Last Action: Converted on 12/15/181017 by RUBEN LANCE MD Carbidopa/Levodopa (Sinemet 25-100 Mg Tablet) 1 Each Tablet, 1 TAB PO TID, ( Reported) Entered as Reported by: CHUCKY ECHOLS on 07/31/17 1633 Last Action: Continued on 12/15/181017 by RUBEN LANCE MD Cholecalciferol (Vitamin D3) (Vitamin D) 2,000 Unit Capsule, 1 CAP PO DAILY, # 30 Ref 3 (Reported) Entered as Reported by: CHUCKY ECHOLS on 07/31/17 1633 Last Action: Converted on 12/15/181017 by RUBEN LANCE MD Ciprofloxacin Hcl (Cipro) 500 Mg Tablet, 1 TAB PO BID for UTI for 3 Days, #6 Prescribed by: RUBEN LANCE MD on 12/17/18 1311 Donepezil Hcl (Aricept) 10 Mg Tablet, 1 TAB PO QHS, #30 Ref 5 (Reported) Entered as Reported by: KAREN FLAHERTY on 04/27/167 Last Action: Converted on 12/15/181017 by RUBEN LANCE MD Lactobacillus Acidophilus (Probiotic) 1 Each Capsule, 1 EACH PO BID, (Reported) Entered as Reported by: ALEXA FRIAS on 12/21/171747 Last Action: Converted on 12/15/181017 by RUBEN LANCE MD Levothyroxine Sodium (Levothyroxine Sodium) 25 Mcg Tablet, 1 TAB PO DAILY, #30 Ref 5 (Reported) Entered as Reported by: KAREN FLAHERTY on 04/27/161626 Last Action: Converted on 12/15/181017 by RUBEN LANCE MD Levothyroxine Sodium (Synthroid) 25 Mcg Tablet, 1 TAB PO DAILY, #30 Ref 5 ( Reported) Entered as Reported by: ALEXA FRIAS on 12/21/171748 Last Action: Converted on 12/15/181017 by RUBEN LANCE MD Memantine Hcl (Namenda) 10 Mg Tablet, 1 TAB PO BID, #180 Ref 1 (Reported) Entered as Reported by: KAREN FLAHERTY on 04/27/161626 Last Action: Converted on 12/15/181017 by RUBEN LANCE MD Multivits,Ca,Minerals/Iron/FA (Thera M Plus Tablet) 1 Each Tablet, 1 EACH PO DAILY, (Reported) Entered as Reported by: ALEXA FRIAS on 12/21/171747 Last Action: Continued on 12/15/181017 by RUBEN LANCE MD Nystatin (Nystatin) 15 Gm Cream..g., 1 HANG TP TID, #30 (Reported) Entered as Reported by: ALEXA FRIAS on 12/21/17 175 Last Action: Converted on 12/15/181017 by RUBEN LANCE MD Sertraline Hcl (Zoloft) 50 Mg Tablet, 1 TAB PO DAILY, #30 Ref 2 (Reported) Entered as Reported by: ALEXA FRIAS on 12/21/171747 Last Action: Continued on 12/15/181017 by RUBEN LANCE MD Simvastatin (Simvastatin) 40 Mg Tablet, 1 TAB PO QHS, #30 Ref 5 (Reported) Entered as Reported by: KAREN FLAHERTY on 04/27/16 1627 Last Action: Converted on 12/15/181017 by RUBEN LANCE MD Scheduled PRN Acetaminophen (Mapap) 500 Mg Tablet, 1,000 MG PO PRN Q6HRS PRN for PAIN for 30 Days Prescribed by: SUSANA DENTON on 10/18/16 0914 Last Action: Converted on 12/15/181017 by RUBEN LANCE MD Acetaminophen (Tylenol) 325 Mg Tablet, 2 TAB PO PRN Q6HRS PRN for fever, #30 ( Reported) Entered as Reported by: CHUCKY ECHOLS on 07/31/171646 Last Action: Continued on 12/15/181017 by RUBEN LANCE MD Bisacodyl (Bisacodyl) 10 Mg Supp.rect, 10 MG RC PRN DAILY PRN for CONSTIPATION, Ref 0 (Reported) Entered as Reported by: CHUCKY ECHOLS on 07/31/17 163 Last Action: Converted on 12/15/181017 by RUBEN LANCE MD Na Phos,M-B/Na Phos,Di-Ba (Fleet Enema) 133 Ml Enema, 133 ML RC PRN PRN for CONSTIPATION, (Reported) Entered as Reported by: CHUCKY ECHOLS on 07/31/17 163 Last Action: Continued on 12/15/181017 by RUBEN LANCE MD Tramadol Hcl (Tramadol Hcl) 50 Mg Tablet, 0.5 TAB PO PRN Q4HRS PRN for MODERATE PAIN, #30 (Reported) Entered as Reported by: CHUCKY ECHOLS on 07/31/17 1641 Last Action: Continued on 12/15/181017 by RUBEN LANCE MD Miscellaneous Medications Albuterol Sulfate (Albuterol Sulfate Neb Soln) 2.5 Mg/3 Ml Vial.neb, 2.5 MG NEB for FOR ASTHMA, Ref 0 (Reported) Entered as Reported by: CHUCKY ECHOLS on 07/31/17 163 Last Action: Continued on 12/15/181017 by RUBEN LANCE MD Magnesium Hydroxide (Milk Of Magnesia) 400 Mg/5 Ml Oral.susp, 400 MG PO, ( Reported) Entered as Reported by: CHUCKY ECHOLS on 07/31/17 1638 Last Action: Continued on 12/15/18 1018 by MD CASI VALLADARES HECTOR M MD Dec 17, 2018 20:43
[2018-12-22] MEDS ORDERED: NON FORMULARY ITEM (Alendronate Sodium (Fosamax) 1 TAB) PO SCH (09:00)
== END 2018-12-17 15:14 | disposition home or self-care (01) | DRG 689 ==
LOC: ER 18:14 → 5 SOUTH 22:47
PROVIDERS: ADMIT Internal Medicine; ATTEND Internal Medicine
DX: N39.0 Urinary tract infection, site not specified (principal); G93.41 Metabolic encephalopathy; E87.0 Hyperosmolality and hypernatremia; E86.0 Dehydration; E78.5 Hyperlipidemia, unspecified; E03.9 Hypothyroidism, unspecified; F02.80 Dementia in other diseases classified elsewhere, unspecified severity, without behavioral disturbance, psychotic disturbance, mood disturbance, and anxiety; G20 Parkinson's disease; G30.9 Alzheimer's disease, unspecified; I48.91 Unspecified atrial fibrillation; M19.90 Unspecified osteoarthritis, unspecified site
CPT/HCPCS: 36415; 71045; 80048; 80053; 80329; 81001; 83605; 84439; 84443; 84484; 85025; 85610; 87040; 87086; 87186; 87641; 87804; 93005; 94640; 94760; 96361; 96374; J0696; J7030; J7613; 99285-25; G0480